=== PATIENT | female | born 1965 | race Caucasian/White ===

== ENCOUNTER 2025-07-13 18:06 | Emergency (ER) | payer MEDICAID, SELFPAY ==
[2025-07-13] VITALS (12 sets, daily range): BP systolic 106–146; BP diastolic 56–76; PULSE 81–106; RESP 15–26; TEMP 36.4–37.2; O2SAT 89–100; BMI 58.0
--- NOTE | 2025-07-13 18:56 | ED.VIS.GI ---
HPI HPI - GI History of Present Illness Chief Complaint: Nausea/Vomiting Informant: patient and spouse/S.O. Abdominal Pain/Flank Pain Onset: Today Context: Gradual Onset Timing: Continuous Quality: Cramping Location: RUQ and RLQ Worsened by: Nothing Relieved by: Nothing Nausea/Vomiting/Emesis GI Symptom: Positive for Nausea and Vomiting Quality: Positive for Nonbilious; Negative for Blood streaks, Coffee ground or Hematemesis Diarrhea/Melena/Hematochezia GI Symptom: Positive for Diarrhea and Hematochezia Onset: Today Associated Symptoms Associated Symptoms: Positive for Dysuria; Negative for Frequency or Hematuria Narrative Narrative: Patient presents with nausea, vomiting, diarrhea, and abdominal pain that began today. 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 Patient states that today she started having some nausea and vomiting. Patient states she also had diarrhea. There is some blood streaks in her diarrhea. believes that this is from the cancer. Patient admits to some dysuria and burning with urination. Patient states her abdominal pain is cramping. Patient states it is mainly over the right side of her abdomen. Patient admits to some subjective chills. Patient admits to some generalized weakness. [facility] Medical History (Updated 07/13/25 @ 23:[address] Stuart Maravilla, ) FH: cholecystectomy Endometrial cancer Home Medications ?Medication ?Instructions ?Recorded ?Last Taken ?Type sulfamethoxazole 800 1 tab PO BID #6 TABLETS 07/13/25 Unknown Rx mg-trimethoprim 160 mg tablet Allergy/AdvReac Type Severity Reaction Status Date / Time Gadolinium-MRI Contrast Allergy Shortness Verified 07/13/25 18:13 Medium of breath promethazine (From Phenergan) Allergy Anaphylaxis Verified 07/13/25 18:13 Surgical History (Updated 07/13/25 @ 19:[address] Stuart Maravilla, DO) History of kidney surgery Hx of cholecystectomy Hx of hysterectomy Social History Smoking Status: Never smoker ROS ROS ED Constitutional Constitutional ED: Reports chills; Denies fever(s) Eyes Eyes: Denies blurry vision or change in vision ENT ENT ED: Denies rhinorrhea or sore throat Cardiovascular Cardiovascular: Denies chest pain or palpitations Respiratory/Chest Respiratory/Chest: Denies cough or dyspnea Gastrointestinal Gastrointestinal: Reports abdominal pain, diarrhea, nausea and vomiting Genitourinary Genitourinary ED: Reports dysuria; Denies hematuria Musculoskeletal Musculoskeletal: Reports back pain; Denies neck pain Integumentary Reports rash; Denies abscess Neurologic Neurologic: Reports weakness; Denies headache(s) Allergic/Immunologic Allergic/Immunologic ED: Denies mouth swelling or urticaria EXAM Physical Exam Const Vital Signs: 07/13/25 18:08 07/13/25 18:11 07/13/25 18:41 Temperature 97.6 F L 97.6 F L Temperature Source Oral Oral Pulse Rate 86 86 81 Respiratory Rate 15 15 19 H Blood Pressure 144/73 H 146/76 H Blood Pressure Mean 96 99 Pulse Ox 89 94 98 Oxygen Delivery Method Room Air Nasal Cannula Oxygen Flow Rate (L/min) 2 07/13/25 18:43 07/13/25 18:45 07/13/25 19:00 Temperature Temperature Source Pulse Rate 84 104 H Respiratory Rate 20 H Blood Pressure 123/66 H 133/70 H Blood Pressure Mean 83 86 Pulse Ox 100 98 100 Oxygen Delivery Method Nasal Cannula Oxygen Flow Rate (L/min) 07/13/25 19:11 07/13/25 19:15 07/13/25 20:00 Temperature 97.9 F 97.6 F L Temperature Source Oral Oral Pulse Rate 85 85 86 Respiratory Rate 20 H 26 H Blood Pressure 129/61 H 129/61 H 135/61 H Blood Pressure Mean 83 82 85 Pulse Ox 100 100 100 Oxygen Delivery Method Nasal Cannula Nasal Cannula Oxygen Flow Rate (L/min) 2 2 07/13/25 21:00 07/13/25 22:00 07/13/25 23:00 Temperature 98.1 F 98.1 F 99.0 F Temperature Source Oral Oral Oral Pulse Rate 93 94 106 H Respiratory Rate 22 H 22 H 22 H Blood Pressure 106/67 106/56 L 119/57 L Blood Pressure Mean 80 72 77 Pulse Ox 100 99 95 Oxygen Delivery Method Nasal Cannula Nasal Cannula Room Air Oxygen Flow Rate (L/min) 2 2 Positive well nourished and well developed Constitutional Narrative: BMI is 58.1. General Appearance ED: well developed and NAD HEENT Reports moist mucous membranes normocephalic Neck supple and no JVD Resp normal respiratory effort and clear to auscultation bilaterally Cardio regular rate and regular rhythm GI Palpation: soft and tender epigastric, LLQ, RLQ, LUQ, RUQ, periumbilical and suprapubic; Negative for rebound tenderness present Neuro CN's II-XII intact bilaterally, moves all extremities and no sensory deficits noted Sensorium / Orientation: alert Motor Exam: strength 5/5 throughout Psych mental status grossly normal MDM MDM MDM Narrative Medical decision making narrative: Differential diagnose includes dehydration, electrolyte abnormality, radiation side effect, urinary tract infection, pancreatitis, and viral illness. CBC will be obtained to assess for leukocytosis and anemia. Comprehensive metabolic profile will be obtained to assess for hepatic function, renal function, and electrolyte abnormality. Urinalysis will be obtained to assess for urinary tract infection and hematuria. Lipase will be obtained to assess for pancreatitis. Urinalysis will be obtained to assess for urinary tract infection and hematuria. History & Record Review Additional record(s) reviewed:: No prior records Lab Data Attestation: I reviewed the patient's lab results. Lab results narrative: CBC was reviewed. There is a mild leukocytosis of 14.4. The remainder is within normal limits. Comprehensive metabolic profile was reviewed. BUN was slightly elevated at 28. Electrolytes were within normal limits. Glucose was slightly elevated at 108. Alkaline phosphatase was slightly elevated at 118. The remainder is within normal limits. Lipase was reviewed and was normal at 33. Urinalysis was reviewed. Leukocyte esterase was 500. There are 10-25 red blood cells and 10-25 white blood cells. There is 2+ bacteria. Labs: Laboratory Results - last 24 hr 07/13/25 07/13/25 19:10 23:25 WBC 14.4 H RBC 5.11 Hgb 13.9 Hct 43.8 MCV 85.7 MCH 27.2 MCHC 31.7 L RDW Std Deviation 48.9 H RDW Coeff of [place] 15.7 H Plt Count 330 MPV 9.1 Immature Gran % (Auto) 0.500 Neut % (Auto) 95.6 H Lymph % (Auto) 0.7 L [place] % (Auto) 2.3 Eos % (Auto) 0.3 Baso % (Auto) 0.6 Absolute Neuts (auto) 13.7 H Absolute Lymphs (auto) 0.10 L Nucleated RBC % 0 Sodium 143 Potassium 3.9 Chloride 105 Carbon Dioxide 22.0 Anion Gap 16 H BUN 20 H Creatinine 0.88 Estim Creat Clear Calc 97.61 Est GFR (MDRD) Non-Af 77 BUN/Creatinine Ratio 23.1 H Glucose 108 H Calcium 9.5 Total Bilirubin 0.40 AST 22 ALT 17 Alkaline Phosphatase 118 H Total Protein 7.5 Albumin 4.2 Globulin 3.3 Albumin/Globulin Ratio 1.3 Lipase 33 Urine Color Yellow Urine Clarity Sl. Cloudy Urine pH 6.0 Ur Specific [place] 1.020 Urine Protein 30 H Urine Glucose (UA) Normal Urine Ketones 5 H Urine Occult Blood 250 H Urine Nitrite Negative Urine Bilirubin 1 H Urine Urobilinogen Normal Ur Leukocyte Esterase 500 H Urine RBC 10-25 SEEN Urine WBC 10-25 SEEN Ur Squamous Epith Cells 0-5 SEEN Urine Bacteria 2+ Urine Mucus 0 SEEN Treatment and Re-Evaluation :: Patient was given IV fluids and Zofran. Patient was given repeat dose Zofran. Patient was also given a dose of Dilaudid. Patient was feeling better on reevaluation. Patient was advised of her findings. Patient was given a dose of Bactrim here. Patient is given a prescription for Bactrim. Patient was instructed to drink plenty of fluids. Patient was instructed to follow-up with her primary care physician and oncologist when she returns home. Patient and family understood and were agreeable with the plan. All questions were answered. Discharge Plan Triage Chief Complaint: Nausea/Vomiting ED Provider: Stuart Maravilla Dx/Rx/DC Orders Clinical Impression: Urinary tract infection, Diarrhea, Dehydration Instructions: ED Dehydration (Adult), ED Diarrhea, Unknown Cause, ED Cystitis Female Adult, ED Vomiting (Adult) Prescriptions: New sulfamethoxazole-trimethoprim 800-160 mg tablet 1 tab PO BID Qty: 6 0RF Primary Care Provider: FLORES VEGA Referrals: FLORES VEGA [Other] - 3-5 Days Print Language: Tamazight Disposition Disposition: Home, Self Care
[2025-07-13 19:19] LABS: Hematocrit 43.8 % (37-47); Hemoglobin 13.9 g/dL (12.0-15.0); Immature Granulocytes Count 0.070 X10^3/uL (0.0-0.0); Mean Corp Hgb Conc 31.7 g/dL (32-36); Mean Corpuscular Volume 85.7 fL (81-99); Mean Platelet Vol. 9.1 fl (6.2-12.0); NRBC Flagged by Analyzer 0 % (0-5); POSITIVE DIFFERENTIAL YES; Platelet Count 330 K/mm3 (150-450); RBC Distribution Width CV 15.7 % (11.6-14.6); RBC Distribution Width SD 48.9 fl (35.1-43.9); Red Blood Count 5.11 M/mm3 (4.2-5.4); White Blood Count 14.4 K/mm3 (4.4-11.0)
[2025-07-13] MEDS: 0.9% Normal Saline (1000mL) 1,000 ML 1000 ML IV ×3 (19:23→23:22)
[2025-07-13 19:36] LABS: AST(SGOT) 22 U/L (<=31); Alanine Aminotransfer ALT/SGPT 17 U/L (<=34); Albumin, Serum 4.2 g/dL (3.5-5.0); Alkaline Phosphatase 118 U/L (35-104); Anion Gap 16 (5-15); BUN 20 mg/dL (4-19); BUN/Creat Ratio 23.1 RATIO (10-20); Calcium,Total 9.5 mg/dL (7.6-11.0); Carbon Dioxide 22.0 mmol/L (21.0-32.0); Chloride 105 mmol/L (98-108); Estimated Creatinine Clearance 97.61 ml/min (50-250); Globulin 3.3 g/dL (2.2-4.2); Glucose 108 mg/dL (70-99); Lipase 33 U/L (13-75); Potassium 3.9 mmol/L (3.3-5.1)
[2025-07-13 23:28] LABS: Mucous, Urine 0 SEEN /hpf (<or=2+)
[2025-07-13 23:29] LABS: Color, Urine Yellow (Yellow); Glucose, Dipstick Normal (Normal); Ketone-Dipstick 5 mg/dl (Negative); Leukocyte Esterase-Dipstick 500 /ul (Negative); Nitrite-Dipstick Negative (Negative); Occult Blood-Urine 250 /ul (Negative); Protein-Dipstick 30 mg/dl (Negative); Specific Gravity, Urine 1.020 (1.002-1.030)
[2025-07-13 23:39] LABS: Red Blood Cells-Urine 10-25 SEEN /hpf (0-5); Squamous Epithelial Cells - UA 0-5 SEEN /hpf (5-10); Urine Bilirubin Dipstick 1 mg/dL (Negative)
[2025-07-14] VITALS: BP 121/65; PULSE 95; RESP 18; TEMP 37.2; O2SAT 100
[2025-07-14] MEDS: Smz/Tmp Ds Tablet 1 TABLET PO (00:16)
[2025-07-14] MEDS: 0.9% Saline Lock 10 ML Syringe IV (00:17)
== END 2025-07-14 00:28 | disposition home or self-care (01) ==
PROVIDERS: Emergency Provider Emergency Medicine; Visit Provider Emergency Medicine
DX: N39.0 Urinary tract infection, site not specified (principal); C48.2 Malignant neoplasm of peritoneum, unspecified; E86.0 Dehydration; R19.7 Diarrhea, unspecified; R11.2 Nausea with vomiting, unspecified; Z92.3 Personal history of irradiation; Z90.49 Acquired absence of other specified parts of digestive tract; Z85.42 Personal history of malignant neoplasm of other parts of uterus; Z90.710 Acquired absence of both cervix and uterus
CPT/HCPCS: 36591; 80053; 81001; 83690; 85025; 87177; 87209; 87493; 87506; 96361; 96374; 96375; 96376; 99285; A4216; J2405